=== PATIENT | female | born 1960 | race Caucasian/White ===

== ENCOUNTER 2017-03-13 15:05 | Emergency (ER) | payer OTHER ==
[2017-03-13 15:15] VITALS: BP 184/107; PULSE 78; O2SAT 96
--- NOTE | 2017-03-13 15:48 | ERPHSYRPT ---
- History of Present Illness Time Seen by Provider: 03/13/17 15:41 Source: patient Exam Limitations: no limitations Patient Subjective Stated Complaint: rt knee pain Triage Nursing Assessment: states was walking up stairs at 1030 and felt a pop in rt outer knee. pain worse with ambulation. pt states she always has pain to rt knee but pain is worse since episode. swelling noted to rt knee (pt states rt knee is always bigger than lt) pain to outer rt knee. no bruising Physician History: The patient is a 56-year-old female with her complaining that she felt a pop in her right knee this morning when she was walking up the stairs. There was immediate pain and the knee has continued to be painful especially when she tries to bend it or walk on it. It may be slightly swollen but she is unsure because the right knee is always larger than the left. Her past medical history significant for hypertension. Method of Injury: other (walking up stairs) Occurred: this morning Quality: sharpness Severity of Pain-Max: moderate Severity of Pain-Current: moderate Lower Extremities Pain: knee: right Modifying Factors: Improves With: nothing Associated Symptoms: unable to bear weight, popping sensation Allergies/Adverse Reactions: codeine Allergy (Verified 03/13/17 15:15) Sulfa (Sulfonamide Antibiotics) Allergy (Verified 03/13/17 15:15) Home Medications: Hydrochlorothiazide 25 mg [hydroDIURIL 25 MG] 25 mg PO DAILY 02/15/15 [ History] Lisinopril 40 mg PO DAILY 02/15/15 [History] Metoprolol Tartrate 25 mg PO BID 02/15/15 [History] Hx Tetanus, Diphtheria Vaccination/Date Given: Yes Hx Influenza Vaccination/Date Given: No Hx Pneumococcal Vaccination/Date Given: No Immunizations Up to Date: Yes - Review of Systems Constitutional: No Fever, No Chills Eyes: No Symptoms Ears, Nose, & Throat: No Symptoms Respiratory: No Cough, No Dyspnea Cardiac: No Chest Pain, No Edema, No Syncope Abdominal/Gastrointestinal: No Abdominal Pain, No Nausea, No Vomiting, No Diarrhea Genitourinary Symptoms: No Dysuria Musculoskeletal: Joint Pain (right knee) Skin: No Rash Neurological: No Dizziness, No Focal Weakness, No Sensory Changes Psychological: No Symptoms Endocrine: No Symptoms Hematologic/Lymphatic: No Symptoms Immunological/Allergic: No Symptoms All Other Systems: Reviewed and Negative - Past Medical History Pertinent Past Medical History: Yes Neurological History: No Pertinent History ENT History: No Pertinent History Cardiac History: High Cholesterol, Hypertension Respiratory History: No Pertinent History Endocrine Medical History: No Pertinent History Musculoskeletal History: Arthritis GI Medical History: No Pertinent History History: No Pertinent History Psycho-Social History: No Pertinent History Female Reproductive Disorders: No Pertinent History - Past Surgical History Past Surgical History: Yes Neuro Surgical History: No Pertinent History Cardiac: No Pertinent History Respiratory: No Pertinent History Gastrointestinal: No Pertinent History Genitourinary: No Pertinent History Musculoskeletal: No Pertinent History Female Surgical History: No Pertinent History Other Surgical History: breast cyst removed - Social History Smoking Status: Current every day smoker How long have you smoked: 40 years Exposure to second hand smoke: Yes Drug Use: none Patient Lives Alone: No - Nursing Vital Signs Nursing Vital Signs: Initial Vital Signs Temperature 98.3 F Temperature Source Oral Pulse Rate 78 Respiratory Rate 18 Blood Pressure [Right Arm] 184/107 Pain Intensity 7 - Physical Exam General Appearance: mild distress Eyes, Ears, Nose, Throat Exam: moist mucous membranes Neck Exam: non-tender, supple Cardiovascular/Respiratory Exam: chest non-tender, normal breath sounds, regular rate/rhythm, no respiratory distress Gastrointestinal/Abdominal Exam: non-tender, guarding Back Exam: normal inspection, No vertebral tenderness Hips Exam: bilateral: non-tender Legs Exam: bilateral leg: non-tender Knees Exam: right knee: pain, soft tissue tenderness, swelling, left knee: non- tender, normal inspection, normal range of motion Ankle Exam: bilateral ankle: non-tender, normal inspection, normal range of motion Foot Exam: bilateral foot: non-tender, normal inspection, normal range of motion Neuro/Tendon Exam: normal sensation, normal motor functions Mental Status Exam: alert, oriented x 3, cooperative Skin Exam: normal color, warm, dry SpO2 Interpretation: normal SpO2: 96 Oxygen Delivery: Room Air - Radiology Exams Right Knee X-ray Interpretation: Teleradiologist Report, No Fracture, Other (arthritis) Ordered Tests: Active Orders 24 hr Category Date Time Status Cold Application STAT Care 03/13/17 15:51 Active KNEE (3 VIEWS) Stat Exams 03/13/17 15:52 Completed Medication Summary Discontinued Medications Generic Name Dose Route Start Last Admin Trade Name Freq PRN Reason Stop Dose Admin Ketorolac Tromethamine 60 mg 03/13/17 15:51 03/13/17 15:56 Toradol 30 Mg Injection IM 03/13/17 15:52 60 mg STAT ONE Administration Ketorolac Tromethamine Confirm 03/13/17 15:55 Toradol 30 Mg Injection Administered 03/13/17 15:56 Dose 60 mg .ROUTE .STK-MED ONE - Progress Progress: improved Counseled pt/family regarding: diagnosis, rad results - Departure Time of Disposition: 16:45 Departure Disposition: Home Clinical Impression: Right knee injury Condition: Stable Critical Care Time: No Additional Instructions: You have a soft tissue injury to your right knee. The x-ray showed arthritis. You were given a Toradol 60 mg IM injection in the ER. Take naproxen 500 mg twice a day as needed. Apply ice to the knee as needed. Use the Devan bandage as needed. If your knee is still hurting next week, see your primary medical doctor for possible MRI and further evaluation. Prescriptions: Naproxen 500 mg PO BID PRN #30 tablet.
[2017-03-13] MEDS ORDERED: TORAdol 30 mg Injection IM ONE (15:51)
[2017-03-13] MEDS ORDERED: TORAdol 30 mg Injection ONE (15:55)
--- NOTE | 2017-03-13 16:16 | XRAY ---
Indication: Pain. "Pop" while walking. Comparison: March 22, 2015. 3 views of the right knee again demonstrates osteopenia and mild/moderate tricompartmental degenerative changes again greatest involving the lateral compartment. No new/acute bony, articular, or soft tissue abnormalities.
== END 2017-03-13 16:58 | disposition home or self-care (01) ==
LOC: ED 15:05
DX: S89.81XA Other specified injuries of right lower leg, initial encounter (principal); M25.561 Pain in right knee; X50.0XXA Overexertion from strenuous movement or load, initial encounter
CPT/HCPCS: 73562; 96372; 99283; 99284; J1885

== ENCOUNTER 2025-07-13 15:58 | Emergency (ER) | payer OTHER ==
--- NOTE | 2025-07-13 16:06 | ERPHSYRPT ---
- History of Present Illness Time Seen by Provider: 07/13/25 16:06 Source: patient, family Exam Limitations: no limitations Physician History: This is a 64-year-old white female patient of nurse practitioner Charlette who arrives by private vehicle to the hospital but from the radiology ultrasound suite after being diagnosed with a left leg DVT. There is a nonoccluding superficial femoral vein proximal to distal but an occluded superficial greater saphenous vein. The patient was sent to obtain a venous Doppler of the left lower extremity secondary to left leg edema. Patient also has some complaints of shortness of breath as well. Patient has history of hypertension, hyperlipidemia and asthma Activities at Onset: none Severity of Dyspnea-Max: mild Severity of Dyspnea-Current: mild Possible Cause: occasional episodes Associated Symptoms: ankle swelling (Left side), No cough, No chest pain/discomfort, No wheezing, No weakness Allergies/Adverse Reactions: codeine Allergy (Verified 03/13/17 15:15) Sulfa (Sulfonamide Antibiotics) Allergy (Verified 03/13/17 15:15) Home Medications: Hydrochlorothiazide 25 mg [hydroDIURIL 25 MG] 25 mg PO DAILY 02/15/15 [History] Metoprolol Tartrate 25 mg PO BID 02/15/15 [History] lisinopriL [Lisinopril] 40 mg PO DAILY 02/15/15 [History] Hx Tetanus, Diphtheria Vaccination/Date Given: Yes Hx Influenza Vaccination/Date Given: No Hx Pneumococcal Vaccination/Date Given: No Travel Risk - International Travel Have you traveled outside of the country in past 3 weeks: No - Emerging Infectious Disease Are you exhibiting symptoms associated with any current EIDs: No - Review of Systems Constitutional: No Symptoms Eyes: No Symptoms Ears, Nose, & Throat: No Symptoms Respiratory: Dyspnea (Mild) Cardiac: No Symptoms, No Chest Pain Abdominal/Gastrointestinal: No Symptoms Genitourinary Symptoms: No Symptoms Musculoskeletal: No Symptoms Skin: No Symptoms Neurological: No Symptoms Psychological: No Symptoms Endocrine: No Symptoms Hematologic/Lymphatic: No Symptoms Immunological/Allergic: No Symptoms All Other Systems: Reviewed and Negative - Past Medical History Pertinent Past Medical History: Yes Neurological History: No Pertinent History ENT History: No Pertinent History Cardiac History: High Cholesterol, Hypertension Respiratory History: No Pertinent History Endocrine Medical History: No Pertinent History Musculoskeletal History: Arthritis GI Medical History: No Pertinent History History: No Pertinent History Psycho-Social History: No Pertinent History Female Reproductive Disorders: No Pertinent History - Past Surgical History Past Surgical History: Yes Neuro Surgical History: No Pertinent History Cardiac: No Pertinent History Respiratory: No Pertinent History Gastrointestinal: No Pertinent History Genitourinary: No Pertinent History Musculoskeletal: No Pertinent History Female Surgical History: No Pertinent History Other Surgical History: breast cyst removed - Social History Smoking Status: Current every day smoker How long have you smoked: 40 years Exposure to second hand smoke: Yes Drug Use: none Patient Lives Alone: No - Nursing Vital Signs Nursing Vital Signs: Initial Vital Signs Respiratory Rate 24 07/13/25 16:00 O2 Sat by Pulse Oximetry 96 07/13/25 16:00 Pain Scale Pain Intensity 5 - Physical Exam General Appearance: no apparent distress, alert Eye Exam: PERRL/EOMI, post op pupil defect (L) Ears, Nose, Throat Exam: hearing grossly normal, normal ENT inspection, normal pharynx Neck Exam: normal inspection, non-tender, supple, full range of motion Respiratory Exam: normal breath sounds, lungs clear, airway intact, No chest tenderness, No respiratory distress Cardiovascular/Chest Exam: normal heart sounds, regular rate/rhythm Abdominal/Gastrointestinal Exam: soft, normal bowel sounds, No tenderness Rectal Exam: not done Extremity Exam: normal range of motion, swelling (Left lower extremity edema) Neurologic Exam: alert, oriented x 3, cooperative, enterer II-XII nml as tested, normal mood/affect, nml cerebellar function, nml station & gait, sensation nml Skin Exam: normal color, warm, dry Lymphatic Exam: No adenopathy SpO2 Interpretation: normal O2 Delivery: Room Air - Course Nursing assessment & vital signs reviewed: Yes EKG Interpreted by Me: RATE (69), Sinus Rhythm, NORMAL AXIS, NORMAL INTERVALS, NORMAL QRS, Other (QTc is 435. No evidence of any acute ischemia) Ordered Tests: Active Orders 24 hr Category Date Time Status Accounts Manager STAT Care 07/13/25 16:08 Active EKG-ER Only STAT Care 07/13/25 16:07 Active IV Insertion STAT Care 07/13/25 16:07 Active BLOOD CULTURE Stat Lab 07/13/25 16:34 Received CBC W DIFF Stat Lab 07/13/25 16:15 Completed CMP Stat Lab 07/13/25 16:15 Completed NT PRO BNPII Stat Lab 07/13/25 16:15 Completed PROTIME WITH INR Stat Lab 07/13/25 16:15 Completed PTT Stat Lab 07/13/25 16:15 Completed TROPONIN Q4H Lab 07/13/25 16:15 Completed TROPONIN Q4H Lab 07/13/25 20:15 Ordered TROPONIN Q4H Lab 07/14/25 00:15 Ordered Medication Summary Discontinued Medications Generic Name Dose Route Start Last Admin Trade Name Freq PRN Reason Stop Dose Admin Apixaban 5 mg 07/13/25 19:46 Apixaban 2.5 Mg Tablet PO 07/13/25 19:47 STAT ONE Enoxaparin Sodium 100 mg 07/13/25 19:34 Enoxaparin Sodium 120 Mg/0.8 Ml Syringe SQ 07/13/25 19:35 STAT STA Lab/Rad Data: Laboratory Result Diagrams 07/13/25 16:15 07/13/25 16:15 Laboratory Results 07/13/25 07/13/25 07/13/25 Range/Units 16:35 16:15 16:15 WBC (3.98-10.04) x10^3/uL RBC (3.93-5.22) x10^6/uL Hgb (11.2-15.7) g/dL Hct (34.1-44.9) % MCV (79.4-94.8) fL MCH (25.6-32.2) pg MCHC (32.2-35.5) g/dL RDW (11.7-14.4) % Plt Count (182-369) x10^3/uL MPV (9.4-12.3) fL Gran % (34.0-71.1) % Immature Gran % (Auto) (0.001-0.429) % Nucleat RBC Rel Count (0.00-0.2) % Eos # (Auto) (0.04-0.36) x10^3/uL Immature Gran # (Auto) (0.001-0.031) x10^3u/L Absolute Lymphs (auto) (1.18-3.74) x10^3/uL Absolute Monos (auto) (0.24-0.86) x10^3/uL Absolute Nucleated RBC (0.00-0.012) x10^3u/L Lymphocytes % (19.3-51.7) % Monocytes % (4.7-12.5) % Eosinophils % (0.7-5.8) % Basophils % (0.1-1.2) % Absolute Granulocytes (1.56-6.13) x10^3/uL Basophils # (0.01-0.08) x10^3/uL PT 10.2 (9.4-12.5) SECONDS INR 0.91 (0.8-3.0) APTT 23.9 L (25.1-36.5) SECONDS Sodium (135-145) mmol/L Potassium (3.5-5.1) mmol/L Chloride (98-107) mmol/L Carbon Dioxide (22-30) mmol/L Anion Gap (5-15) MEQ/L BUN (7-17) mg/dL Creatinine (0.52-1.04) mg/dL Estimated GFR ML/MIN Glucose (74-106) mg/dL Calcium (8.4-10.2) mg/dL Total Bilirubin (0.2-1.3) mg/dL AST (14-36) U/L ALT (0-35) U/L Alkaline Phosphatase (38-126) U/L Troponin I < 0.012 (0.000-0.033) ng/mL NT-Pro-B Natriuret Pep (<300) pg/mL Serum Total Protein (6.3-8.2) g/dL Albumin (3.5-5.0) g/dL Influenza Type A Ag NEGATIVE (NEGATIVE) Influenza Type B Ag NEGATIVE (NEGATIVE) RSV (PCR) NEGATIVE (NEGATIVE) SARS-CoV-2 (PCR) NEGATIVE (NEGATIVE) 07/13/25 07/13/25 Range/Units 16:15 16:15 WBC 8.3 (3.98-10.04) x10^3/uL RBC 5.02 (3.93-5.22) x10^6/uL Hgb 16.0 H (11.2-15.7) g/dL Hct 49.2 H (34.1-44.9) % MCV 98.0 H (79.4-94.8) fL MCH 31.9 (25.6-32.2) pg MCHC 32.5 (32.2-35.5) g/dL RDW 15.1 H (11.7-14.4) % Plt Count 204 (182-369) x10^3/uL MPV 10.1 (9.4-12.3) fL Gran % 68.2 (34.0-71.1) % Immature Gran % (Auto) 0.4 (0.001-0.429) % Nucleat RBC Rel Count 0.0 (0.00-0.2) % Eos # (Auto) 0.24 (0.04-0.36) x10^3/uL Immature Gran # (Auto) 0.03 (0.001-0.031) x10^3u/L Absolute Lymphs (auto) 1.61 (1.18-3.74) x10^3/uL Absolute Monos (auto) 0.67 (0.24-0.86) x10^3/uL Absolute Nucleated RBC 0.00 (0.00-0.012) x10^3u/L Lymphocytes % 19.4 (19.3-51.7) % Monocytes % 8.1 (4.7-12.5) % Eosinophils % 2.9 (0.7-5.8) % Basophils % 1.0 (0.1-1.2) % Absolute Granulocytes 5.65 (1.56-6.13) x10^3/uL Basophils # 0.08 (0.01-0.08) x10^3/uL PT (9.4-12.5) SECONDS INR (0.8-3.0) APTT (25.1-36.5) SECONDS Sodium 139 (135-145) mmol/L Potassium 4.1 (3.5-5.1) mmol/L Chloride 107 (98-107) mmol/L Carbon Dioxide 24 (22-30) mmol/L Anion Gap 12.1 (5-15) MEQ/L BUN 32 H (7-17) mg/dL Creatinine 2.37 H (0.52-1.04) mg/dL Estimated GFR 22.5 ML/MIN Glucose 107 H (74-106) mg/dL Calcium 8.9 (8.4-10.2) mg/dL Total Bilirubin 0.70 (0.2-1.3) mg/dL AST 20 (14-36) U/L ALT 12 (0-35) U/L Alkaline Phosphatase 83 (38-126) U/L Troponin I (0.000-0.033) ng/mL NT-Pro-B Natriuret Pep 2020 (<300) pg/mL Serum Total Protein 6.8 (6.3-8.2) g/dL Albumin 4.0 (3.5-5.0) g/dL Influenza Type A Ag (NEGATIVE) Influenza Type B Ag (NEGATIVE) RSV (PCR) (NEGATIVE) SARS-CoV-2 (PCR) (NEGATIVE) - Progress Progress: re-examined Air Movement: good Progress Note: 07/13/25 17:03 My medical decision making and the assignment of at least moderate complexity of this patient's medical issue today is based on review of the patient's past medical history, review of the patient's medication list, reviewed patient drug allergy list, history of present illness and physical findings on examination. The workup in this patient includes placement of an intravenous line, CBC, CMP, PT/INR/PTT, twelve-lead EKG, troponin. Differential diagnosis includes but is not limited to left lower extremity nonoccluding DVT, electrolyte abnormalities, myocardial infarction, anemia, pulmonary embolus 07/13/25 17:04 The lead neurodiagnostic technologist preliminary report was provided to me. It shows the left lower extremity superficial femoral vein nonoccluding vessel proximal to distal. There is also an occluding thrombus in the greater saphenous vein which is superficial system. 07/13/25 19:43 I interpreted the patient's laboratory data results. Based on the laboratory data results, the patient does have significant, stage IV chronic kidney disease. Her GFR is 22. Based on the laboratory data results she has no other acute, emergent medical issues. Initially, the patient agreed to be placed in the hospital under observation so that we could provide her with anticoagulation therapy and perform a VQ scan on her. However, the patient is now declining and wants to leave AGAINST MEDICAL ADVICE. I explained to her that she is at risk of having a pulmonary embolus and dangerous position and that we cannot document this unless further testing is performed in the hospital setting. She is awake, she is alert, she is oriented. She understands that there is risks of worsening condition and even . She will sign AGAINST MEDICAL ADVICE form. We will provide her with Lovenox subcu injection now and provide her with initial dose of Eliquis followed by outpatient prescription of Eliquis. Patient understands that she needs to follow-up as an outpatient for further treatment with Eliquis. Blood Culture(s) Obtained: No Antibiotics given: No Counseled pt/family regarding: lab results, diagnosis, rad results Medical Desision Making - Diagnostic Testing Diagnostic test were ordered, analyzed, and reviewed by me: Yes Radiological Interpretation: Reviewed by me, Teleradiologist Report - Risk of complications The pt has a mod risk of morbidity or mortality based on: Need for prescription drug management The pt has a high risk of morbidity or mortality based on: Decision regarding hospitilization or escalation of hosp level of care - Departure Departure Disposition: AMA Clinical Impression: Left leg DVT, Cough, Shortness of breath Condition: Stable Critical Care Time: No Referrals: KUSH HIGH NP [Primary Care Provider, [facility]] - Follow up/PCP as directed Additional Instructions: You must call your primary care provider tomorrow, 07/14/2025, and tell them that you left AGAINST MEDICAL ADVICE but we gave you 1 week prescription of blood thinning medication. Take your medications as prescribed. If your symptoms worsen return to the emergency department Prescriptions: Apixaban [Eliquis] 10 mg PO BID 7 Days #28 tablet
[2025-07-13 16:23] VITALS: TEMP 98.5
[2025-07-13 16:42] LABS: BASOPHIL % 1.0 % (0.1-1.2); Basophil (Absolute #) 0.08 x10^3/uL (0.01-0.08); Eosinophil (Absolute #) 0.24 x10^3/uL (0.04-0.36); Hematocrit 49.2 % (34.1-44.9); Hemoglobin 16.0 g/dL (11.2-15.7); IMMATURE GRAN # 0.03 x10^3u/L (0.001-0.031); IMMATURE GRAN % 0.4 % (0.001-0.429); Lymphocyte (Absolute #) 1.61 x10^3/uL (1.18-3.74); Mean Corpuscular Hemoglobin 31.9 pg (25.6-32.2); Mean Corpuscular Hgb Concent. 32.5 g/dL (32.2-35.5); Monocyte (Absolute #) 0.67 x10^3/uL (0.24-0.86); NUCLEATED RBC # 0.00 x10^3u/L (0.00-0.012); NUCLEATED RBC % 0.0 % (0.00-0.2); Platelet Count 204 x10^3/uL (182-369); Red Blood Count 5.02 x10^6/uL (3.93-5.22); White Blood Count 8.3 x10^3/uL (3.98-10.04)
[2025-07-13 17:01] LABS: INR 0.91 (0.8-3.0); PROTIME 10.2 SECONDS (9.4-12.5); PTT 23.9 SECONDS (25.1-36.5)
[2025-07-13 17:08] LABS: Calcium 8.9 mg/dL (8.4-10.2); Carbon Dioxide 24.0 mmol/L (22-30); Creatinine 1 2.37 mg/dL (0.52-1.04); EST GLOMERULAR FILTRATION RATE 22.5 ML/MIN; Glucose 107.0 mg/dL (74-106); NT PRO BNPII 2020.0 pg/mL (<300); Potassium 4.1 mmol/L (3.5-5.1); SGOT/AST 20.0 U/L (14-36); SGPT/ALT 12.0 U/L (0-35); Total Protein 6.8 g/dL (6.3-8.2)
[2025-07-13 17:20] LABS: INFLUENZA A NEGATIVE (NEGATIVE); INFLUENZA B NEGATIVE (NEGATIVE); RESPIRATORY SYNCTIAL VIRUS NEGATIVE (NEGATIVE); SARS-CoV-2 Xpert Express NEGATIVE (NEGATIVE)
[2025-07-13] MEDS ORDERED: ENOXAPARIN SODIUM SQ ONE (20:01)
[2025-07-13] MEDS: ELIQUIS 2.5 MG TABLET PO ONE (20:02)
[2025-07-13] MEDS: ENOXAPARIN SODIUM SQ STA (20:02)
[2025-07-13 20:12] VITALS: BP 166/111; PULSE 64; RESP 16; O2SAT 99
== END 2025-07-13 20:15 | disposition left against medical advice (07) ==
LOC: ED 15:58
DX: I82.412 Acute embolism and thrombosis of left femoral vein (principal); I82.812 Embolism and thrombosis of superficial veins of left lower extremity; R05.9 Cough, unspecified; R06.02 Shortness of breath; I10 Essential (primary) hypertension; Z79.01 Long term (current) use of anticoagulants; Z79.899 Other long term (current) drug therapy; Z72.0 Tobacco use